=== PATIENT | male | born 1980 | race African-American/Black ===

== ENCOUNTER 2017-12-18 01:21 | Emergency (ER) | payer OTHER ==
[2017-12-18] MEDS ORDERED: LIDOCAINE 2% 20 ML VIAL. IJ ONE (02:00)
[2017-12-18] MEDS ORDERED: BUPIVACAINE MPF 0.5% 30 ML VIAL. SQ ONE (02:00)
--- NOTE | 2017-12-18 02:09 | ED.ADGEN ---
Past History Past Medical History: Depression, Other Past Surgical History: Other Adult General Chief Complaint Chief Complaint ".. I sometimes get depressed.. I ve cut my wrist before...to try and kill myself..." " I was trying to kill myself....." HPI HPI Patient is a 37 year old male [employer] inmate under heavy security who presents with history of suicide attempt by cutting his wrists with shaving razor blades. Transport gives possible history of swallowing razor blades after cutting his wrist. Patient has history of prior depression and recently has been off his antidepressant meds. Patient has had 2 prior suicide attempts by cutting his wrists. Patient presents with incisions of both wrists. Has a 30 centimeter laceration on left forearm and 4 x 5 cm lacerations to right wrist. Lacerations are through the skin that do not appear to have cut into the belly of the muscle or through flexor tendons. Patient distal neurovascular intact. Does have active bleeding after removal of dressing. Lacerations washed with soap and water. Irrigated with normal saline. Pressure dressings applied while completing the remainder of physical exam. Patient reports tetanus updated approximately 3 years ago. Patient denies any ingestion of meds or other substances. Patient reportedly off his antidepressant meds last 30 days. Pt. is right-hand dominant. Does have scars to wrists from prior reported suicide attempts. Review of Systems Review of Systems Patient somewhat poor historian Constitutional: Denies fever or chills [] Eyes: Denies change in visual acuity, redness, or eye pain [] HENT: Denies nasal congestion or sore throat [] Respiratory: Denies cough or shortness of breath [] Cardiovascular: No additional information not addressed in HPI [] GI: Denies abdominal pain, nausea, vomiting, bloody stools or diarrhea [] : Denies dysuria or hematuria [] Musculoskeletal: Denies back pain or joint pain [] Integument: Denies rash or skin lesions []bilateral wrist lacerations Neurologic: Denies headache, focal weakness or sensory changes [] Endocrine: Denies polyuria or polydipsia [] All other systems were reviewed and found to be within normal limits, except as documented in this note. Family History Family History Patient refuses family history Current Medications Current Medications Current Medications Medications (Trade) Dose Ordered Sig/Jodee Start Time Stop Time Status Last Admin Dose Admin Bupivacaine HCl (Sensorcaine Mpf 0.5%) 30 ml 1X ONCE 12/18/17 02:00 12/18/17 03:29 DC Ceftriaxone Sodium (Rocephin Im) 1 gm 1X ONCE 12/18/17 03:30 12/18/17 03:31 DC 12/18/17 04:37 1 GM Clindamycin HCl (Cleocin) 300 mg 1X ONCE 12/18/17 05:00 12/18/17 05:01 DC 12/18/17 05:00 300 MG Folic Acid (FOLIC ACID SYRINGE for ER) 5 mg STK-MED ONCE 12/18/17 04:20 12/18/17 04:21 DC Lidocaine HCl 20 ml STK-MED ONCE 12/18/17 04:27 12/18/17 04:28 DC Multivitamins/ Minerals (Infuvite Adult) 10 ml STK-MED ONCE 12/18/17 04:20 12/18/17 04:21 DC Multivitamins/ Minerals 10 ml/ Folic Acid 1 mg/ Thiamine HCl 100 mg/Sodium Chloride 1,011.1 ml @ 1,000 mls/ hr 1X ONCE 12/18/17 03:30 12/18/17 04:30 DC 12/18/17 04:35 1,000 MLS/HR Tetanus/ Diphtheria Toxoids Adsorbed (Tenivac Vial) 0.5 ml ONCE ONCE 12/18/17 03:30 12/18/17 03:31 DC 12/18/17 04:48 0.5 ML Thiamine HCl 200 mg STK-MED ONCE 12/18/17 04:20 12/18/17 04:21 DC Trimethoprim/ Sulfamethoxazole (Bactrim Ds) 1 tab 1X ONCE 12/18/17 05:00 12/18/17 05:01 DC 12/18/17 05:02 1 TAB Allergies Allergies Allergies Coded Allergies Type Severity Reaction Last Updated Verified Iodine and Iodide Containing Produc Allergy Severe 12/18/17 Yes Penicillins Allergy Severe 12/18/17 Yes Initial hx. patient stated he had no allergies Physical Exam Physical Exam Constitutional: Well developed, well nourished, in acute distress, non-toxic appearance. [] HENT: Normocephalic, atraumatic, bilateral external ears normal, oropharynx moist, no oral exudates, nose normal. [] Eyes: PERRLA, EOMI, conjunctiva normal, no discharge. [] Neck: Normal range of motion, no tenderness, supple, no stridor. [] Cardiovascular:Heart rate regular rhythm, no murmur [] Lungs & Thorax: Bilateral breath sounds equal at apex on auscultation [] Abdomen: Bowel sounds normal, soft, no tenderness, no masses, no pulsatile masses. [] Circumcised male Skin: Warm, dry, no erythema, no rash. [] Lacerations to both wrist as per history of present illness Back: No tenderness, no CVA tenderness. [] Extremities: No tenderness, no cyanosis, no clubbing, ROM intact, no edema. [] Neurologic: Alert and oriented X 3, normal motor function, normal sensory function, no focal deficits noted. [] Psychologic: Affect anxious ,judgement poor insight to his behavior,, mood depressed. Reports suicidal ideation Current Patient Data Lab Results Laboratory Tests Test 12/18/17 03:31 12/18/17 04:09 Urine Collection Type Void Urine Color Yellow Urine Clarity Clear Urine pH 6.0 Urine Specific [place] >=1.030 Urine Protein 30 mg/dl (NEG-TRACE) Urine Glucose (UA) Neg mg/dL (NEG) Urine Ketones (Stick) 80 mg/dL (NEG) Urine Blood Neg (NEG) Urine Nitrite Neg (NEG) Urine Bilirubin Neg (NEG) Urine Urobilinogen Dipstick 1 mg/dL (0.2 mg/dL) Urine Leukocyte Esterase Neg (NEG) Urine RBC 0 /HPF (0-2) Urine WBC Occ /HPF (0-4) Urine Squamous Epithelial Cells Occ /LPF Urine Bacteria 0 /HPF (0-FEW) Urine Mucus Mod /LPF Urine Opiates Screen Neg (NEG) Urine Methadone Screen Neg (NEG) Urine Barbiturates Neg (NEG) Urine Phencyclidine Screen Neg (NEG) Urine Amphetamine/Methamphetamine Neg (NEG) Urine Benzodiazepines Screen Neg (NEG) Urine Cocaine Screen Neg (NEG) Urine Cannabinoids Screen Pos (NEG) Urine Ethyl Alcohol Neg (NEG) White Blood Count 4.4 x10^3/uL (4.0-11.0) Red Blood Count 5.32 x10^6/uL (4.30-5.70) Hemoglobin 13.8 g/dL (13.0-17.5) Hematocrit 42.1 % (39.0-53.0) Mean Corpuscular Volume 79 fL (79-100) Mean Corpuscular Hemoglobin 26 pg (25-35) Mean Corpuscular Hemoglobin Concent 33 g/dL (31-37) Red Cell Distribution Width 14.5 % (11.5-14.5) Platelet Count 148 x10^3/uL (140-400) Neutrophils (%) (Auto) 56 % (31-73) Lymphocytes (%) (Auto) 33 % (24-48) Monocytes (%) (Auto) 10 % (0-9) H Eosinophils (%) (Auto) 1 % (0-3) Basophils (%) (Auto) 1 % (0-3) Neutrophils # (Auto) 2.5 x10^3uL (1.8-7.7) Lymphocytes # (Auto) 1.5 x10^3/uL (1.0-4.8) Monocytes # (Auto) 0.4 x10^3/uL (0.0-1.1) Eosinophils # (Auto) 0.0 x10^3/uL (0.0-0.7) Basophils # (Auto) 0.0 x10^3/uL (0.0-0.2) Prothrombin Time 11.8 SEC (9.4-11.4) H Prothrombin Time INR 1.2 (0.9-1.1) H PTT 28 SEC (23-33) Sodium Level 140 mmol/L (136-145) Potassium Level 3.4 mmol/L (3.5-5.1) L Chloride Level 103 mmol/L (98-107) Carbon Dioxide Level 27 mmol/L (21-32) Anion Gap 10 (6-14) Blood Urea Nitrogen 13 mg/dL (8-26) Creatinine 1.0 mg/dL (0.7-1.3) Estimated GFR (Cockcroft-Gault) 102.9 Glucose Level 73 mg/dL (70-99) Calcium Level 9.3 mg/dL (8.5-10.1) Salicylates Level < 0.2 mg/dL (2.8-20.0) L Salicylate Last Dose Date Unknown Salicylate Last Dose Time Unknown Acetaminophen Level < 2.0 mcg/mL (10-30) L Acetaminophen Last Dose Date Unknown Acetaminophen Last Dose Time Unknown EKG EKG Refused [] Radiology/Procedures Radiology/Procedures I interpretation of x-rays of head and chest and abdomen shows no obvious ingestion of razor blades. X-ray of the patient's clothing showed no razor blades[] Course & Med Decision Making Course & Med Decision Making Pertinent Labs and Imaging studies reviewed. (See chart for details) Procedure note- laceration repair- lacerations of both forearms irrigated with normal saline. Repaired with maya x15 in Lt arm and 15 x in Rt wrist. Bacitracin applied with pressure dressing. Patient keep wound clean and dry. Patient apply Polysporin 4 times a day. Maya out in 10 days. Take Bactrim DS twice day for 7 days. Patient needs to remain on suicide watch until depression stabilize with antidepressant medications or clearance by psychiatry. [] Final Impression Final Impression 1. Depression 2. Suicide attempt 3. Lacerations total length approximately 50 cm[] Dragon Disclaimer Dragon Disclaimer This electronic medical record was generated, in whole or in part, using a voice recognition dictation system. VINAY MORELOS MD Dec 18, 2017 02:09
[2017-12-18] MEDS ORDERED: cefTRIAXone IM 1 GM VIAL IM ONE (03:30)
[2017-12-18] MEDS ORDERED: TETANUS AND DIPHTHERIA TOX/PF 0.5 ML VIAL. VAX IM ONE (03:30)
[2017-12-18] MEDS ORDERED: MVI, ADULT NO.4 WITH VIT K 10 ML, FOLIC ACID SYRINGE for ER 1 MG, THIAMINE 100 MG in IV... IV ONE ×4 (03:30)
[2017-12-18] MEDS ORDERED: BACI28.34 TP (03:43)
[2017-12-18] MEDS ORDERED: CEPH-264 PO (03:43)
[2017-12-18 03:53] LABS: CLARITY,URINE CLEAR; GLUCOSE,URINE NEG (NEG)
[2017-12-18 03:54] LABS: BACTERIA,URINE 0 /HPF (0-FEW); BILIRUBIN,URINE NEG (NEG); COLOR,URINE YELLOW; NITRITE,URINE NEG (NEG); RBC,URINE 0 /HPF (0-2); SQUAMOUS EPITHELIAL CELL,UR OCC /LPF; UROBILINOGEN,URINE 1 mg/dL (0.2 mg/dL); WBC,URINE OCC /HPF (0-4)
[2017-12-18 03:57] LABS: BARBITURATES NEG (NEG); BENZODIAZEPINES NEG (NEG); CANNABINOIDS POS (NEG); COCAINE NEG (NEG); METHADONE NEG (NEG); OPIATES NEG (NEG); PHENCYCLIDINE NEG (NEG)
[2017-12-18 04:15] LABS: AMPHETAMINE/METHAMPHETAMINE NEG (NEG)
[2017-12-18] MEDS ORDERED: MVI, ADULT NO.4 WITH VIT K 10 ML VIAL IV ONE (04:20)
[2017-12-18] MEDS ORDERED: FOLIC ACID 5 MG/ML SYRINGE for ER IV ONE (04:20)
[2017-12-18] MEDS ORDERED: THIAMINE 200 MG/2 ML VIAL. IV ONE (04:20)
[2017-12-18] MEDS ORDERED: LIDOCAINE 1% Multi-Dose 20 ML VIAL. ONE (04:27)
[2017-12-18 04:40] LABS: BASO % 1 % (0-3); EOS % 1 % (0-3); HEMATOCRIT 42.1 % (39.0-53.0); HEMOGLOBIN 13.8 g/dL (13.0-17.5); LYMPH # 1.5 x10^3/uL (1.0-4.8); LYMPH % 33 % (24-48); MEAN CORPUSCULAR HEMOGLOBIN 26 pg (25-35); MEAN CORPUSCULAR HGB CONC 33 g/dL (31-37); MEAN CORPUSCULAR VOLUME 79 fL (79-100); MONO # 0.4 x10^3/uL (0.0-1.1); MONO % 10 % (0-9); NEUT # 2.5 x10^3uL (1.8-7.7); NEUT % 56 % (31-73); PLATELET COUNT 148 x10^3/uL (140-400); RED BLOOD COUNT 5.32 x10^6/uL (4.30-5.70); RED CELL DISTRIBUTION WIDTH 14.5 % (11.5-14.5); WHITE BLOOD COUNT 4.4 x10^3/uL (4.0-11.0)
[2017-12-18 04:44] LABS: CALCIUM 9.3 mg/dL (8.5-10.1); GFR 102.9; POTASSIUM 3.4 mmol/L (3.5-5.1)
[2017-12-18 04:45] LABS: SALIC < 0.2 mg/dL (2.8-20.0)
[2017-12-18] MEDS ORDERED: SULF1TAB24 PO (04:46)
[2017-12-18 04:56] LABS: ACETAMIN < 2.0 mcg/mL (10-30)
[2017-12-18] MEDS ORDERED: SMZ/TMP 800/160MG TABLET. PO ONE (05:00)
[2017-12-18] MEDS ORDERED: CLINDAMYCIN HCL 150 MG CAPSULE PO ONE (05:00)
--- NOTE | 2017-12-18 05:03 | RAD ---
EXAM: 1. Skull 2 views. 2. Chest one view. 3. Abdomen 2 views. HISTORY: Swallowed razor blade. COMPARISON: None. FINDINGS: There is no radiopaque foreign body throughout. No calvarial fractures identified. The paranasal sinuses and mastoid air cells are normally aerated. There are no confluent infiltrates. There is no pneumothorax or pleural effusion. The heart is not enlarged. There is no pneumoperitoneum. There are no distended small bowel loops or significant air-fluid levels. There is gas distally. IMPRESSION: 1. No radiopaque foreign body. 2. No confluent infiltrates. 3. No evidence of obstruction. Electronically signed by: Anh Reed MD (12/18/2017 4:59 AM) [id number]
[2017-12-18 05:51] VITALS: BP 139/75
== END 2017-12-18 06:06 | disposition home or self-care (01) ==
LOC: EEVIPCON 01:21 → ER 01:21
DX: S61.511A Laceration without foreign body of right wrist, initial encounter (principal); S51.812A Laceration without foreign body of left forearm, initial encounter; F32.9 Major depressive disorder, single episode, unspecified; Z91.5 Personal history of self-harm; Z91.041 Radiographic dye allergy status; Z88.0 Allergy status to penicillin; X78.8XXA Intentional self-harm by other sharp object, initial encounter; Y93.89 Activity, other specified; Y92.89 Other specified places as the place of occurrence of the external cause; Y99.8 Other external cause status
CPT/HCPCS: 12007; 36415; 70250; 71045; 74021; 80048; 80307; 81001; 85025; 85610; 85730; 90471; 90714; 96365; 96372; 99285; G0480; G6039; 12002; J0696; 82003; G0479; J7030

== ENCOUNTER 2018-01-29 21:46 | Emergency (ER) | payer OTHER ==
[~2018-01-29] VITALS: Ht 185.4 cm; Wt 81.6 kg
[~2018-01-29 21:46] MED LIST: BACI28.34 TP; CEPH-264 PO; SULF1TAB24 PO
[2018-01-29 22:19] VITALS: BP 151/86
[2018-01-29] MEDS ORDERED: LIDOCAINE 2%/EPI 1:100,000 20 ML VIAL. IJ ONE (22:45)
[2018-01-29 22:53] LABS: BASO % 1 % (0-3); EOS % 1 % (0-3); HEMATOCRIT 41.1 % (39.0-53.0); HEMOGLOBIN 13.1 g/dL (13.0-17.5); LYMPH # 1.6 x10^3/uL (1.0-4.8); LYMPH % 40 % (24-48); MEAN CORPUSCULAR HEMOGLOBIN 26 pg (25-35); MEAN CORPUSCULAR HGB CONC 32 g/dL (31-37); MEAN CORPUSCULAR VOLUME 81 fL (79-100); MONO # 0.5 x10^3/uL (0.0-1.1); MONO % 12 % (0-9); NEUT # 1.9 x10^3uL (1.8-7.7); NEUT % 47 % (31-73); PLATELET COUNT 128 x10^3/uL (140-400); RED BLOOD COUNT 5.09 x10^6/uL (4.30-5.70); RED CELL DISTRIBUTION WIDTH 14.9 % (11.5-14.5)
[2018-01-29 23:06] LABS: ACETAMIN < 2.0 mcg/mL (10-30); ETHANOL < 10 mg/dL (0-10); SALIC 0.5 mg/dL (2.8-20.0)
[2018-01-29 23:11] LABS: BARBITURATES NEG (NEG); BENZODIAZEPINES NEG (NEG); CANNABINOIDS NEG (NEG); COCAINE NEG (NEG); METHADONE NEG (NEG); OPIATES NEG (NEG); PHENCYCLIDINE NEG (NEG)
[2018-01-29 23:12] LABS: AMPHETAMINE/METHAMPHETAMINE NEG (NEG)
[2018-01-29 23:21] LABS: BILIRUBIN,URINE NEG (NEG); CLARITY,URINE CLEAR; COLOR,URINE STRAW; GLUCOSE,URINE NEG (NEG)
[2018-01-29 23:22] LABS: BACTERIA,URINE FEW /HPF (0-FEW); NITRITE,URINE NEG (NEG); RBC,URINE 0 /HPF (0-2); SQUAMOUS EPITHELIAL CELL,UR OCC /LPF; UROBILINOGEN,URINE 0.2 mg/dL (0.2 mg/dL); WBC,URINE 0 /HPF (0-4)
--- NOTE | 2018-01-29 23:28 | PHYS DOC ---
Past History Past Medical History: Depression, Other Past Surgical History: Other Alcohol Use: None Drug Use: None Adult General Chief Complaint Chief Complaint: LACERATION/AVULSION HPI HPI Patient is a 37-year-old male with past medical history of depression who presents after intentionally lacerating his volar forearm. 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 Patient says he is still having suicidal ideations in the emergency department. Patient denies homicidal ideation. Patient has a history of cutting. Patient denies any other complaints at this time. Review of Systems Review of Systems Constitutional: Denies fever or chills [] Eyes: Denies change in visual acuity, redness, or eye pain [] HENT: Denies nasal congestion or sore throat [] Respiratory: Denies cough or shortness of breath [] Cardiovascular: Denies chest pain or palpitations[] GI: Denies abdominal pain, nausea, vomiting, bloody stools or diarrhea [] : Denies dysuria or hematuria [] Musculoskeletal: Denies back pain or joint pain [] Integument: Denies rash, notes left forearm laceration[] Neurologic: Denies headache, focal weakness or sensory changes [] Complete systems were reviewed and found to be within normal limits, except as documented in this note. Family History Family History Noncontributory Current Medications Current Medications Current Medications Medications (Trade) Dose Ordered Sig/Jodee Start Time Stop Time Status Last Admin Dose Admin Lidocaine/ Epinephrine (Xylocaine 2%-Epi 1:100,000) 20 ml 1X ONCE 01/29/18 22:45 01/29/18 22:48 DC 01/29/18 22:52 20 ML Allergies Allergies Allergies Coded Allergies Type Severity Reaction Last Updated Verified Iodine and Iodide Containing Produc Allergy Severe 12/18/17 Yes Penicillins Allergy Severe 12/18/17 Yes Physical Exam Physical Exam Constitutional: Well developed, well nourished, no acute distress, non-toxic appearance. [] HENT: Normocephalic, atraumatic, oropharynx moist, no oral exudates, nose normal. [] Eyes: PERRL, EOMI, conjunctiva normal, no discharge. [] Neck: Normal range of motion, no tenderness, supple. [] Cardiovascular: Heart rate regular rhythm, no murmur []] Skin: Warm, dry, no erythema, no rash. Multiple healed laceration scars on the left volar forearm. 8 cm linear vertical superficial laceration extending from the distal volar forearm 3 cm proximal to the wrist.[] Back: No tenderness, no CVA tenderness. [] Extremities: No tenderness, peripheral circulation normal, ROM intact, no edema. Full motor function of hand and wrist on the left arm. [] Neurologic: Alert and oriented X 3, normal motor function, normal sensory function, no focal deficits noted. [] Psychologic: Affect flat and subdued, mood appears depressed but calm. [] Current Patient Data Vital Signs Vital Signs Date Time Temp Pulse Resp B/P (MAP) Pulse Ox O2 Delivery O2 Flow Rate FiO2 01/29/18 22:19 98.4 67 16 100 Room Air Lab Results Laboratory Tests Test 01/29/18 22:40 01/29/18 22:55 White Blood Count 4.0 x10^3/uL (4.0-11.0) Red Blood Count 5.09 x10^6/uL (4.30-5.70) Hemoglobin 13.1 g/dL (13.0-17.5) Hematocrit 41.1 % (39.0-53.0) Mean Corpuscular Volume 81 fL (79-100) Mean Corpuscular Hemoglobin 26 pg (25-35) Mean Corpuscular Hemoglobin Concent 32 g/dL (31-37) Red Cell Distribution Width 14.9 % (11.5-14.5) H Platelet Count 128 x10^3/uL (140-400) L Neutrophils (%) (Auto) 47 % (31-73) Lymphocytes (%) (Auto) 40 % (24-48) Monocytes (%) (Auto) 12 % (0-9) H Eosinophils (%) (Auto) 1 % (0-3) Basophils (%) (Auto) 1 % (0-3) Neutrophils # (Auto) 1.9 x10^3uL (1.8-7.7) Lymphocytes # (Auto) 1.6 x10^3/uL (1.0-4.8) Monocytes # (Auto) 0.5 x10^3/uL (0.0-1.1) Eosinophils # (Auto) 0.0 x10^3/uL (0.0-0.7) Basophils # (Auto) 0.0 x10^3/uL (0.0-0.2) Magnesium Level 2.0 mg/dL (1.8-2.4) Salicylates Level 0.5 mg/dL (2.8-20.0) L Salicylate Last Dose Date 05/11/00 Salicylate Last Dose Time 100 Acetaminophen Level < 2.0 mcg/mL (10-30) L Acetaminophen Last Dose Date 05/11/00 Acetaminophen Last Dose Time 100 Ethyl Alcohol Level < 10 mg/dL (0-10) Urine Collection Type Unknown Urine Color Straw Urine Clarity Clear Urine pH 6.5 Urine Specific [place] 1.015 Urine Protein Neg (NEG-TRACE) Urine Glucose (UA) Neg mg/dL (NEG) Urine Ketones (Stick) Neg mg/dL (NEG) Urine Blood Neg (NEG) Urine Nitrite Neg (NEG) Urine Bilirubin Neg (NEG) Urine Urobilinogen Dipstick 0.2 mg/dL (0.2 mg/dL) Urine Leukocyte Esterase Neg (NEG) Urine RBC 0 /HPF (0-2) Urine WBC 0 /HPF (0-4) Urine Squamous Epithelial Cells Occ /LPF Urine Transitional Epithelial Cells Occ /LPF Urine Bacteria Few /HPF (0-FEW) Urine Mucus Slight /LPF Urine Opiates Screen Neg (NEG) Urine Methadone Screen Neg (NEG) Urine Barbiturates Neg (NEG) Urine Phencyclidine Screen Neg (NEG) Urine Amphetamine/Methamphetamine Neg (NEG) Urine Benzodiazepines Screen Neg (NEG) Urine Cocaine Screen Neg (NEG) Urine Cannabinoids Screen Neg (NEG) Urine Ethyl Alcohol Neg (NEG) EKG EKG [] Radiology/Procedures Radiology/Procedures [] Course & Med Decision Making Course & Med Decision Making 37-year-old male presents from local care home after intentionally lacerating his left volar forearm. Patient has an 8 cm vertical superficial laceration. Evidence of multiple previous intentional lacerations on the left forearm. Patient states this evening he was taking a shower and intentionally cut his arm on a towel hook. Laceration repaired with 9 simple interrupted 3-0 Ethilon sutures with good closure of the wound and hemostasis. Patient given wound care instructions. Patient states he has had TDaP < 5 years. Labs initially collected and evaluated for medical clearance. Patient to receive further psychiatric evaluation and treatment with mental health professionals at the care home. Patient stable for discharge with psychiatric evaluation at the care home. Discussed findings and plan with patient, who acknowledge understanding and agreement. Two guards from the care home accompanied and transported the patient and were present during entire ED visit. [] Dragon Disclaimer Dragon Disclaimer This electronic medical record was generated, in whole or in part, using a voice recognition dictation system. Laceration/Wound Repair Laceration/Wound Repair : Wound Location: upper extremity (left forearm) Wound's Depth, Shape: superficial, linear Wound Length (cm): 8 Wound Explored: no foreign body removed Irrigated w/ Saline (ccs): 150 Betadine Prep?: Yes (chloraprep) Anesthesia: Lidocaine w/ Epi (2%) Volume Anesthetic (ccs): 6 Wound Debrided: minimal Wound Repaired With: sutures Suture Size/Type: 3:0, nylon Number of Sutures: 9 Layer Closure?: Yes Sterile Dressing Applied?: Yes Progress Verbal consent obtained. Time out performed. Patient tolerated procedure well and without difficulty. Departure Departure: Impression: Primary Impression: Dehiscence of laceration repair Additional Impression: Suicidal ideation Disposition: 65 XFER TO PSYCH HOSP/UNIT (ERASED) Condition: GUARDED Referrals: ESVIN ORONA DO (PCP) Patient Instructions: Laceration Care, Adult, [id number], Suicidal Feelings, How to Help Yourself Additional Instructions: Please follow up with [facility] regarding your Suicidal Ideation. Suture Instructions: Do not soak your wound. You may shower. Clean wound daily with soap and water. Change dressing 2 times daily. Use over the counter antibiotic ointment with each dressing change. Sutures need to be removed in 10 days. Present to your family doctor or local urgent care for removal. You may also present to the ED but it will be an additional visit/charge. After suture removal you may use Vitamin E ointment to soften the wound and prevent scarring. Problem Qualifiers Primary Impression: Dehiscence of laceration repair Encounter type: initial encounter Qualified Codes: T81.33XA - Disruption of traumatic injury wound repair, initial encounter MELBA DHILLON DO Jan 29, 2018 23:27
[2018-01-30] MEDS ORDERED: BACITRACIN ZINC TOPICAL OINT PACKET. TP SCH ×2 (09:00)
== END 2018-01-29 23:50 | disposition home or self-care (01) ==
LOC: EEVIPCON 21:46 → ER 21:46
DX: T81.33XA Disruption of traumatic injury wound repair, initial encounter (principal); S51.812A Laceration without foreign body of left forearm, initial encounter; R45.851 Suicidal ideations; F32.9 Major depressive disorder, single episode, unspecified; Z88.0 Allergy status to penicillin; Z91.041 Radiographic dye allergy status; W26.8XXA Contact with other sharp object(s), not elsewhere classified, initial encounter; Y93.E1 Activity, personal bathing and showering; Y92.142 Bathroom in prison as the place of occurrence of the external cause; Y99.8 Other external cause status
CPT/HCPCS: 12034; 36415; 80307; 81001; 83735; 85025; 99284; G0480; G6039; 82003; G0479

== ENCOUNTER 2018-06-19 18:48 | Emergency (ER) | payer OTHER ==
[~2018-06-19] VITALS: Ht 185.4 cm; Wt 86.2 kg
[2018-06-19] MEDS ORDERED: IV RINGERS SOLUTION,LACTATED 1,000 ML IV SCH (19:16)
[2018-06-19] MEDS ORDERED: LIDOCAINE 2%/EPI 1:100,000 20 ML VIAL. IJ ONE (19:30)
[2018-06-19] MEDS ORDERED: BUPIVACAINE MPF 0.5% 30 ML VIAL. SQ ONE (19:30)
[2018-06-19 21:09] LABS: BACTERIA,URINE 0 /HPF (0-FEW); BILIRUBIN,URINE NEG (NEG); CLARITY,URINE CLEAR; COLOR,URINE YELLOW; GLUCOSE,URINE NEG (NEG); NITRITE,URINE NEG (NEG); RBC,URINE RARE /HPF (0-2); SQUAMOUS EPITHELIAL CELL,UR OCC /LPF; UROBILINOGEN,URINE 0.2 mg/dL (0.2 mg/dL); WBC,URINE RARE /HPF (0-4)
[2018-06-19 21:10] LABS: BARBITURATES NEG (NEG); BENZODIAZEPINES NEG (NEG); CANNABINOIDS NEG (NEG); COCAINE NEG (NEG); METHADONE NEG (NEG); OPIATES NEG (NEG); PHENCYCLIDINE NEG (NEG)
[2018-06-19 21:12] LABS: AMPHETAMINE/METHAMPHETAMINE NEG (NEG)
[2018-06-19 21:19] VITALS: BP 148/66
--- NOTE | 2018-06-19 21:21 | ED.ADGEN ---
Past History Past Medical History: Anxiety, Depression, Other Past Surgical History: Other Smoking: Cigarettes Alcohol Use: None Drug Use: None Adult General Chief Complaint Chief Complaint "... I get depressed... and I just cut myself..." " yes I swallowed the razor blade earlier..." HPI HPI Patient is a 37 year old male [facility] inmate who presents with multiple laceration to Lt forearm and hx of swallowing the razor blade afterwards. Patient reports depression, anxiety and suicidal ideation. Patient has self cuts before and has multiple scars from previous self cutting. Patient last ate approximately 1800 hrs. Patient does not remember his last tetanus but thinks that up-to-date. Patient denies any intake of drugs. Patient is [employer] inmate from [facility]. No recent travel. Pt. has trial pending in July. Pt concerned he may have long fdc sentence. Review of Systems Review of Systems Constitutional: Denies fever or chills [] Eyes: Denies change in visual acuity, redness, or eye pain [] HENT: Denies nasal congestion or sore throat [] Respiratory: Denies cough or shortness of breath [] Cardiovascular: No additional information not addressed in HPI [] GI: Denies abdominal pain, nausea, vomiting, bloody stools or diarrhea [] : Denies dysuria or hematuria [] Musculoskeletal: Denies back pain or joint pain [] Integument: Denies rash or skin lesions []Complaints. Lt. forearm lacerations Neurologic: Denies headache, focal weakness or sensory changes [] Endocrine: Denies polyuria or polydipsia [] All other systems were reviewed and found to be within normal limits, except as documented in this note. Family History Family History Non-contributory- Pt. gives min. information Current Medications Current Medications Current Medications Medications (Trade) Dose Ordered Sig/Jodee Start Time Stop Time Status Last Admin Dose Admin Bupivacaine HCl (Sensorcaine Mpf 0.5%) 30 ml 1X ONCE 06/19/18 19:30 06/19/18 19:31 DC Diphtheria/ Tetanus/Acell Pertussis (Boostrix) 0.5 ml ONCE ONCE 06/19/18 21:30 06/19/18 21:31 DC Lactated Ringer's 1,000 ml @ 1,000 mls/hr Q1H 06/19/18 19:16 06/19/18 20:15 DC 06/19/18 21:20 1,000 MLS/HR Lidocaine/ Epinephrine (Xylocaine 2%-Epi 1:100,000) 20 ml 1X ONCE 06/19/18 19:30 06/19/18 19:31 DC Allergies Allergies Allergies Coded Allergies Type Severity Reaction Last Updated Verified Iodine and Iodide Containing Produc Allergy Severe 12/18/17 Yes Penicillins Allergy Severe 12/18/17 Yes Physical Exam Physical Exam Constitutional: Well developed, well nourished, mild to moderate acute emotional distress, non-toxic appearance. [] HENT: Normocephalic, atraumatic, bilateral external ears normal, oropharynx moist, no oral exudates, nose normal. [] Eyes: PERRLA, EOMI, conjunctiva normal, no discharge. [] Neck: Normal range of motion, no tenderness, supple, no stridor. [] Cardiovascular:Heart rate regular rhythm, no murmur [] Lungs & Thorax: Bilateral breath sounds clear to auscultation [] Abdomen: Bowel sounds normal, soft, no tenderness, no masses, no pulsatile masses. [] Skin: Warm, dry, no erythema, no rash. [] Back: No tenderness, no CVA tenderness. [] Extremities: No tenderness, no cyanosis, no clubbing, ROM intact, no edema. [] Lacerations Lt. forearm. Length approximately 25 cm. Multiple old cutting scars both forearms and wrist. Neurologic: Alert and oriented X 3, normal motor function, normal sensory function, no focal deficits noted. [] Psychologic: Affect flat, judgement normal, mood depressed. Impulsive. Current Patient Data Vital Signs Vital Signs Date Time Temp Pulse Resp B/P (MAP) Pulse Ox O2 Delivery O2 Flow Rate FiO2 06/19/18 21:19 56 12 148/66 (93) 99 Room Air 06/19/18 19:05 97.9 Lab Results Laboratory Tests Test 06/19/18 20:35 06/19/18 22:03 Urine Collection Type Unknown Urine Color Yellow Urine Clarity Clear Urine pH 5.5 Urine Specific Edison 1.020 Urine Protein Neg (NEG-TRACE) Urine Glucose (UA) Neg mg/dL (NEG) Urine Ketones (Stick) Neg mg/dL (NEG) Urine Blood Neg (NEG) Urine Nitrite Neg (NEG) Urine Bilirubin Neg (NEG) Urine Urobilinogen Dipstick 0.2 mg/dL (0.2 mg/dL) Urine Leukocyte Esterase Neg (NEG) Urine RBC Rare /HPF (0-2) Urine WBC Rare /HPF (0-4) Urine Squamous Epithelial Cells Occ /LPF Urine Bacteria 0 /HPF (0-FEW) Urine Mucus Mod /LPF Urine Opiates Screen Neg (NEG) Urine Methadone Screen Neg (NEG) Urine Barbiturates Neg (NEG) Urine Phencyclidine Screen Neg (NEG) Urine Amphetamine/Methamphetamine Neg (NEG) Urine Benzodiazepines Screen Neg (NEG) Urine Cocaine Screen Neg (NEG) Urine Cannabinoids Screen Neg (NEG) Urine Ethyl Alcohol Neg (NEG) White Blood Count 3.6 x10^3/uL (4.0-11.0) L Red Blood Count 4.76 x10^6/uL (4.30-5.70) Hemoglobin 12.3 g/dL (13.0-17.5) L Hematocrit 38.7 % (39.0-53.0) L Mean Corpuscular Volume 81 fL (79-100) Mean Corpuscular Hemoglobin 26 pg (25-35) Mean Corpuscular Hemoglobin Concent 32 g/dL (31-37) Red Cell Distribution Width 14.1 % (11.5-14.5) Platelet Count 188 x10^3/uL (140-400) Neutrophils (%) (Auto) 40 % (31-73) Lymphocytes (%) (Auto) 50 % (24-48) H Monocytes (%) (Auto) 9 % (0-9) Eosinophils (%) (Auto) 1 % (0-3) Basophils (%) (Auto) 1 % (0-3) Neutrophils # (Auto) 1.4 x10^3uL (1.8-7.7) L Lymphocytes # (Auto) 1.8 x10^3/uL (1.0-4.8) Monocytes # (Auto) 0.3 x10^3/uL (0.0-1.1) Eosinophils # (Auto) 0.0 x10^3/uL (0.0-0.7) Basophils # (Auto) 0.0 x10^3/uL (0.0-0.2) Platelet Estimate Adequate (ADEQUATE) Large Platelets Occ Hypochromasia Slight Anisocytosis Slight Prothrombin Time 11.3 SEC (9.4-11.4) Prothrombin Time INR 1.1 (0.9-1.1) PTT 27 SEC (23-33) Sodium Level 142 mmol/L (136-145) Potassium Level 3.6 mmol/L (3.5-5.1) Chloride Level 104 mmol/L (98-107) Carbon Dioxide Level 31 mmol/L (21-32) Anion Gap 7 (6-14) Blood Urea Nitrogen 8 mg/dL (8-26) Creatinine 1.0 mg/dL (0.7-1.3) Estimated GFR (Cockcroft-Gault) 102.9 Glucose Level 81 mg/dL (70-99) Calcium Level 8.8 mg/dL (8.5-10.1) Magnesium Level 1.9 mg/dL (1.8-2.4) Total Bilirubin 0.4 mg/dL (0.2-1.0) Direct Bilirubin 0.1 mg/dL (0.0-0.2) Aspartate Amino Transferase (AST) 14 U/L (15-37) L Alanine Aminotransferase (ALT) 13 U/L (16-63) L Alkaline Phosphatase 37 U/L (46-116) L Creatine Kinase 195 U/L (39-308) Troponin I Quantitative 0.019 ng/mL (0-0.055) TR-Ovj-T-Type Natriuretic Peptide 50 pg/mL (0-124) Total Protein 7.0 g/dL (6.4-8.2) Albumin 3.8 g/dL (3.4-5.0) Salicylates Level 0.4 mg/dL (2.8-20.0) L Salicylate Last Dose Date Unknown Salicylate Last Dose Time Unknown Acetaminophen Level < 2.0 mcg/mL (10-30) L Acetaminophen Last Dose Date Unknown Acetaminophen Last Dose Time Unknown Ethyl Alcohol Level < 10 mg/dL (0-10) EKG EKG [] Radiology/Procedures Radiology/Procedures I interpretation of acute abdomen shows no acute cardiopulmonary findings. No free air in the diaphragm. Does have metal object mid abdomen which appears to be a razor blade.[] Course & Med Decision Making Course & Med Decision Making Pertinent Labs and Imaging studies reviewed. (See chart for details). Procedure Note: Lacerations 25 cm lt. forearm. Laceration cleaned with soap and water. Injected edge laceration with 1% lidocaine. Re-irrigated in range of motion with normal saline. Placed one mattress suture with 3-0 Ethilon. Placed 20 maya. Dressing applied. Discussed presentation, testing and treatment plan with Dr. Ferro- [facility]. Discussed presentation, testing and treatment plan with will be happy to consult on pt. at [facility]. Admit to Hospitalist at [facility]. Discussed presentation, testing and tx. plan with Dr. Araya. Pt. transfer to [facility]. [] Final Impression Final Impression 1. Suicidal Ideation 2. Self cutting 3. Depression Hx 4. Ingestion of Razor blade 5. Laceration lt forearm- 25 cm[] 6. Anemia 12.3 7. Elevated Lymphs 50 Dragon Disclaimer Dragon Disclaimer This electronic medical record was generated, in whole or in part, using a voice recognition dictation system. Dragon Disclaimer This chart was dictated in whole or in part using Voice Recognition software in a busy, high-work load, and often noisy Emergency Department environment. It may contain unintended and wholly unrecognized errors or omissions. Discharge Summary Visit Information Final Diagnosis Problems Medical Problems: (1) Suicidal behavior Status: Acute Brief Hospital Course Allergies Allergies Coded Allergies Type Severity Reaction Last Updated Verified Iodine and Iodide Containing Produc Allergy Severe 12/18/17 Yes Penicillins Allergy Severe 12/18/17 Yes Vital Signs Vital Signs Date Time Temp Pulse Resp B/P (MAP) Pulse Ox O2 Delivery O2 Flow Rate FiO2 06/19/18 21:19 56 12 148/66 (93) 99 Room Air 06/19/18 19:05 97.9 Lab Results Laboratory Tests Test 06/19/18 20:35 06/19/18 22:03 Urine Collection Type Unknown Urine Color Yellow Urine Clarity Clear Urine pH 5.5 Urine Specific Edison 1.020 Urine Protein Neg (NEG-TRACE) Urine Glucose (UA) Neg mg/dL (NEG) Urine Ketones (Stick) Neg mg/dL (NEG) Urine Blood Neg (NEG) Urine Nitrite Neg (NEG) Urine Bilirubin Neg (NEG) Urine Urobilinogen Dipstick 0.2 mg/dL (0.2 mg/dL) Urine Leukocyte Esterase Neg (NEG) Urine RBC Rare /HPF (0-2) Urine WBC Rare /HPF (0-4) Urine Squamous Epithelial Cells Occ /LPF Urine Bacteria 0 /HPF (0-FEW) Urine Mucus Mod /LPF Urine Opiates Screen Neg (NEG) Urine Methadone Screen Neg (NEG) Urine Barbiturates Neg (NEG) Urine Phencyclidine Screen Neg (NEG) Urine Amphetamine/Methamphetamine Neg (NEG) Urine Benzodiazepines Screen Neg (NEG) Urine Cocaine Screen Neg (NEG) Urine Cannabinoids Screen Neg (NEG) Urine Ethyl Alcohol Neg (NEG) White Blood Count 3.6 x10^3/uL (4.0-11.0) Red Blood Count 4.76 x10^6/uL (4.30-5.70) Hemoglobin 12.3 g/dL (13.0-17.5) Hematocrit 38.7 % (39.0-53.0) Mean Corpuscular Volume 81 fL (79-100) Mean Corpuscular Hemoglobin 26 pg (25-35) Mean Corpuscular Hemoglobin Concent 32 g/dL (31-37) Red Cell Distribution Width 14.1 % (11.5-14.5) Platelet Count 188 x10^3/uL (140-400) Neutrophils (%) (Auto) 40 % (31-73) Lymphocytes (%) (Auto) 50 % (24-48) Monocytes (%) (Auto) 9 % (0-9) Eosinophils (%) (Auto) 1 % (0-3) Basophils (%) (Auto) 1 % (0-3) Neutrophils # (Auto) 1.4 x10^3uL (1.8-7.7) Lymphocytes # (Auto) 1.8 x10^3/uL (1.0-4.8) Monocytes # (Auto) 0.3 x10^3/uL (0.0-1.1) Eosinophils # (Auto) 0.0 x10^3/uL (0.0-0.7) Basophils # (Auto) 0.0 x10^3/uL (0.0-0.2) Platelet Estimate Adequate (ADEQUATE) Large Platelets Occ Hypochromasia Slight Anisocytosis Slight Prothrombin Time 11.3 SEC (9.4-11.4) Prothromb Time International Ratio 1.1 (0.9-1.1) Activated Partial Thromboplast Time 27 SEC (23-33) Sodium Level 142 mmol/L (136-145) Potassium Level 3.6 mmol/L (3.5-5.1) Chloride Level 104 mmol/L (98-107) Carbon Dioxide Level 31 mmol/L (21-32) Anion Gap 7 (6-14) Blood Urea Nitrogen 8 mg/dL (8-26) Creatinine 1.0 mg/dL (0.7-1.3) Estimated GFR (Cockcroft-Gault) 102.9 Glucose Level 81 mg/dL (70-99) Calcium Level 8.8 mg/dL (8.5-10.1) Magnesium Level 1.9 mg/dL (1.8-2.4) Total Bilirubin 0.4 mg/dL (0.2-1.0) Direct Bilirubin 0.1 mg/dL (0.0-0.2) Aspartate Amino Transf (AST/SGOT) 14 U/L (15-37) Alanine Aminotransferase (ALT/SGPT) 13 U/L (16-63) Alkaline Phosphatase 37 U/L (46-116) Creatine Kinase 195 U/L (39-308) Troponin I Quantitative 0.019 ng/mL (0-0.055) DD-Bdo-N-Type Natriuretic Peptide 50 pg/mL (0-124) Total Protein 7.0 g/dL (6.4-8.2) Albumin 3.8 g/dL (3.4-5.0) Salicylates Level 0.4 mg/dL (2.8-20.0) Salicylate Last Dose Date Unknown Salicylate Last Dose Time Unknown Acetaminophen Level < 2.0 mcg/mL (10-30) Acetaminophen Last Dose Date Unknown Acetaminophen Last Dose Time Unknown Ethyl Alcohol Level < 10 mg/dL (0-10) Brief Hospital Course Mr. Toussaint is a 37 old male who presented with suicide ideation, self cutting and swallowing of razor blade. Discharge Information Condition at Discharge: Improved, Stable Disposition/Orders: D/C to Another Facility Dischare Medications Current Medications Bupivacaine HCl (Sensorcaine Mpf 0.5%) 30 ml 1X ONCE SQ ; Start 06/19/18 at 19: 30; Stop 06/19/18 at 19:31; Status DC Lidocaine/ Epinephrine (Xylocaine 2%-Epi 1:100,000) 20 ml 1X ONCE IJ ; Start at 19:30; Stop 06/19/18 at 19:31; Status DC Lactated Ringer's 1,000 ml @ 1,000 mls/hr Q1H IV Last administered on at 21:20; Admin Dose 1,000 MLS/HR; Start 06/19/18 at 19:16; Stop 06/19/18 at 20: 15; Status DC Diphtheria/ Tetanus/Acell Pertussis (Boostrix) 0.5 ml ONCE ONCE VAX IM ; Start 06/19/18 at 21:30; Stop 06/19/18 at 21:31; Status DC Active Scripts Active Bactrim Ds Tablet (Sulfamethoxazole/Trimethoprim) 1 Each Tablet 1 Tab PO BID Polysporin Ointment (Bacitracin/Polymyxin B Sulfate) 28.3 Gm Oint...g. 28.3 Gm TP QID Keflex (Cephalexin) 500 Mg Capsule 500 Mg PO TID 7 Days VINAY MORELOS MD Jun 19, 2018 21:21
[2018-06-19] MEDS ORDERED: DIPHTH,PERTUSS(ACELL),TET TOX 0.5 ML DISP.SYRIN. VAX IM ONE (21:30)
[2018-06-19 22:18] LABS: BASO % 1 % (0-3); EOS % 1 % (0-3); HEMATOCRIT 38.7 % (39.0-53.0); HEMOGLOBIN 12.3 g/dL (13.0-17.5); LYMPH # 1.8 x10^3/uL (1.0-4.8); LYMPH % 50 % (24-48); MEAN CORPUSCULAR HEMOGLOBIN 26 pg (25-35); MEAN CORPUSCULAR HGB CONC 32 g/dL (31-37); MEAN CORPUSCULAR VOLUME 81 fL (79-100); MONO # 0.3 x10^3/uL (0.0-1.1); MONO % 9 % (0-9); NEUT # 1.4 x10^3uL (1.8-7.7); NEUT % 40 % (31-73); PLATELET COUNT 188 x10^3/uL (140-400); RED BLOOD COUNT 4.76 x10^6/uL (4.30-5.70); RED CELL DISTRIBUTION WIDTH 14.1 % (11.5-14.5); WHITE BLOOD COUNT 3.6 x10^3/uL (4.0-11.0)
[2018-06-19 22:39] LABS: ALBUMIN 3.8 g/dL (3.4-5.0); CALCIUM 8.8 mg/dL (8.5-10.1); DIRECT BILIRUBIN 0.1 mg/dL (0.0-0.2); GFR 102.9; MAGNESIUM 1.9 mg/dL (1.8-2.4); POTASSIUM 3.6 mmol/L (3.5-5.1); TOTAL BILIRUBIN 0.4 mg/dL (0.2-1.0)
[2018-06-19 22:49] LABS: ACETAMIN < 2.0 mcg/mL (10-30)
[2018-06-19 23:01] LABS: ETHANOL < 10 mg/dL (0-10); SALIC 0.4 mg/dL (2.8-20.0)
[2018-06-19 23:21] LABS: ANISOCYTOSIS SLIGHT; HYPOCHROMIA SLIGHT; PLT ESTIMATE ADEQUATE (ADEQUATE)
--- NOTE | 2018-06-21 01:24 | EKG ---
[address] [address] Test Date: 2018-06-19 Test Time: 19:24:43 Pat Name: ELVER HERNANDEZ Department: Room: Gender: M Dietitian Assistant: LINDA : [id number] Requested By: VINAY MORELOS Order Number: [id number] Reading MD: Geovanni Bojorquez MD Measurements Intervals [place] Rate: 60 P: 0 LA: 172 QRS: 61 QRSD: 88 T: 46 QT: 398 QTc: 398 Interpretive Statements SINUS RHYTHM Electronically Signed On 06-24-2018 9:48:33 [employer]ENDING [employer] by Geovanni Bojorquez MD
--- NOTE | 2018-06-21 11:03 | RAD ---
EXAM: Abdomen acute complete, 3 views. HISTORY: Swallowed a razor blade. Foreign body. COMPARISON: 12/18/2017 FINDINGS: A frontal view the chest and frontal upright and supine views of the abdomen are obtained. There is no infiltrate, pleural effusion or pneumothorax. The heart is normal in size. There is a 1.4 cm x 0.4 cm metallic foreign body overlying the left midabdomen in the upright position and upper abdomen in the supine position. This is likely located within the proximal small bowel. There is a prominent air-filled loop of colon within the midabdomen. There is moderate stool within the colon. There is no free air. IMPRESSION: Metallic foreign body likely within the proximal small bowel, consistent with a reported recently ingested razor blade. There is no free air or obstruction. Electronically signed by: Charo Gee MD (06/21/2018 10:58 AM) [id number]
== END 2018-06-19 23:41 | disposition short-term general hospital (02) ==
LOC: EEVIPCON 18:48 → ER 18:48
DX: S51.812A Laceration without foreign body of left forearm, initial encounter (principal); T18.2XXA Foreign body in stomach, initial encounter; R45.851 Suicidal ideations; F32.9 Major depressive disorder, single episode, unspecified; D64.9 Anemia, unspecified; D72.820 Lymphocytosis (symptomatic); F41.9 Anxiety disorder, unspecified; F17.210 Nicotine dependence, cigarettes, uncomplicated; Z91.5 Personal history of self-harm; Z88.0 Allergy status to penicillin; Z91.041 Radiographic dye allergy status; X78.8XXA Intentional self-harm by other sharp object, initial encounter; Y93.89 Activity, other specified; Y92.89 Other specified places as the place of occurrence of the external cause; Y99.8 Other external cause status
CPT/HCPCS: 12006; 36415; 74022; 80048; 80076; 80307; 81001; 82550; 83735; 83880; 84484; 85025; 85610; 85730; 93005; 96360; 99285; G0480; G6039; J7120; 80329; 82003